=== PATIENT | male | born 1965 | race Two or more races ===

== ENCOUNTER 2023-09-14 21:27 | Emergency (ER) | payer MEDICAID, OTHER ==
[~2023-09-14] VITALS: Ht 172.7 cm; Wt 93.6 kg
[2023-09-14] MEDS ORDERED: cefTRIAXone SOD 1,000 MG VL IM ONE (22:30)
[2023-09-14] MEDS ORDERED: AMOX875T4 PO (22:44)
[2023-09-14] MEDS ORDERED: HYDR-4902 PO (22:44)
[2023-09-14 22:47] VITALS: BP 153/91; PULSE 71; RESP 18; O2SAT 98
[2023-09-14 22:58] VITALS: TEMP 100.3
[2023-09-14] MEDS ORDERED: ACETAMINOPHEN 500 MG TAB PO ONE (23:00)
== END 2023-09-14 23:10 | disposition home or self-care (01) ==
LOC: ER 21:27
DX: J32.0 Chronic maxillary sinusitis (principal); K04.7 Periapical abscess without sinus
CPT/HCPCS: 96372; 99283; J0696

== ENCOUNTER 2024-01-13 16:26 | Emergency (ER) | payer MEDICAID ==
[~2024-01-13] VITALS: Ht 172.7 cm; Wt 89.7 kg
[~2024-01-13 16:26] MED LIST: AMOX875T4 PO; HYDR-4902 PO
[2024-01-13 17:33] LABS: Basophils # (auto) 0.1 10 ^3/uL (0-0.2); Basophils % (auto) 1.1 % (0.0-2.0); Eosinophils # (auto) 0.1 10 ^3/uL (0-0.8); Eosinophils % (auto) 2.6 % (0.0-7.0); Hemoglobin 14.9 g/dL (13.5-17.5); Lymphocytes # (auto) 1.6 10 ^3/uL (0.4-5.4); Lymphocytes % (auto) 33.4 % (10.0-50.0); Mean Corpuscular Hemoglobin 29.6 pg (28.0-32.0); Mean Corpuscular Hgb Conc. 33.1 g/dL (32.0-36.0); Mean Corpuscular Volume 89.4 fL (80.0-100.0); Monocytes # (auto) 0.4 10 ^3/uL (0-1.3); Monocytes % (auto) 9.2 % (0.0-12.0); Neutrophils # (auto) 2.6 10 ^3/uL (1.6-8.6); Neutrophils % (auto) 53.7 % (37.0-80.0); Nucleated Red Blood Cells % 0.3 %; Red Blood Cells 5.04 10^6/uL (4.5-5.90); Red Cell Distribution Width 14.6 % (11.8-14.3); White Blood Cell 4.8 10^3/uL (4.4-10.8)
[2024-01-13 17:43] LABS: Alanine Aminotransferase 15 U/L (7-40); Alkaline Phosphatase 61 U/L (46-116); Anion Gap 6 (5-15); Aspartate Aminotransferase 26 U/L (13-40); BUN/Creatinine Ratio 8.1 (10.0-20.0); Blood Urea Nitrogen 11 mg/dL (9-23); Calcium 9.7 mg/dL (8.5-10.1); Carbon Dioxide 31 mmol/L (20-30); Chloride 101 mmol/L (98-107); Glucose 92 mg/dL (74-106); Potassium 3.6 mmol/L (3.5-5.1); Sodium 138 mmol/L (136-145)
[2024-01-13 17:44] LABS: Bilirubin, Total 0.9 mg/dL (0.2-1.0); Total Protein 7.8 g/dL (5.7-8.2)
[2024-01-13] MEDS: BUDESONIDE (INHALATION) 0.5 MG/2 ML NEB NEB ONE (18:50)
[2024-01-13] MEDS: ALBUTEROL SULF 2.5 MG/0.5ML(0.5%) NEB SOLN NEB ONE (18:50)
[2024-01-13] MEDS: IPRATROPIUM BROM 0.5 MG/2.5ML INH SOL NEB ONE (18:50)
[2024-01-13] MEDS ORDERED: LEVO500T91 PO (19:01)
[2024-01-13] MEDS ORDERED: ALBUAER3 IN (19:01)
[2024-01-13] MEDS ORDERED: BENZ200C64 PO (19:01)
[2024-01-13] MEDS ORDERED: DEX4T PO (19:01)
[2024-01-13 19:20] VITALS: BP 171/101; PULSE 69; RESP 16; O2SAT 96
[2024-01-13] MEDS: DexAMETHasone SOD PHOS 10MG/1ML VIAL INJ IV ONE (19:40)
[2024-01-13] MEDS: LABETALOL HCL 5 MG/ML 4ML SYRINGE IV ONE (19:40)
== END 2024-01-13 19:48 | disposition home or self-care (01) ==
LOC: ER 16:26
DX: J40 Bronchitis, not specified as acute or chronic (principal)
CPT/HCPCS: 36415; 71045; 80053; 83605; 83880; 84484; 85025; 85379; 87040; 93005; 94640; 96374; 99285; J1100; J7644